=== PATIENT | female | born 1985 | race Caucasian/White ===

== ENCOUNTER 2021-02-19 09:00 | Outpatient (CLI) | payer OTHER | END 2021-02-19 09:30 | disposition home or self-care (01) | LOC: PPH VACUNA 09:00 | PROVIDERS: ATTEND Emergency Medicine Pediatric Emergency Medicine | DX: Z23 Encounter for immunization (principal) ==

== ENCOUNTER 2024-01-11 13:35 | Outpatient (CLI) | payer OTHER | END 2024-01-11 13:46 | disposition home or self-care (01) | LOC: SONOGRAMA 13:35 | PROVIDERS: ATTEND Obstetrics & Gynecology | DX: N94.9 Unspecified condition associated with female genital organs and menstrual cycle (principal) ==